=== PATIENT | male | born 1990 | race Caucasian/White ===

== ENCOUNTER 2020-03-30 09:28 | Emergency (ER) | payer MEDICAID, SELFPAY ==
[2020-03-30 09:36] VITALS: BP 151/81; PULSE 96; RESP 18; TEMP 36.8; O2SAT 100
--- NOTE | 2020-03-30 09:50 | ED.EYEPROB ---
HPI - Eye Problem General Chief complaint: Eye Problems Stated complaint: left eye swollen/discharge Time Seen by Provider: 03/30/20 09:42 Source: patient and RN notes reviewed Mode of arrival: ambulatory Limitations: no limitations History of Present Illness HPI Narrative: Patient presents today complaining of redness, swelling, and purulent drainage from the left upper eyelid x3 days. History of several styes in the past, and states symptoms are similar. Denies vision changes or photophobia. He has been applying hot compresses without relief. Reports the drainage is most prominent in the mornings. Does not wear contacts. chief complaint: eye pain Related Data Allergies Allergy/AdvReac Type Severity Reaction Status Date / Time No Known Allergies Allergy Verified 03/30/20 09:43 Review of Systems Review of Systems: Narrative: CONSTITUTIONAL: Denies body aches, fever, chills, or sweats. EYES: Denies visual changes. Swelling to left upper eyelid ENT: Denies rhinorrhea, congestion, sore throat, or otalgia. CARDIOVASCULAR: Denies chest pain, palpitations, or edema. RESPIRATORY: Denies cough or dyspnea. GASTROINTESTINAL: Denies abdominal pain, nausea, vomiting, or diarrhea. GENITOURINARY: Denies dysuria or hematuria. SKIN: Denies rash, itching, or wounds. MUSCULOSKELETAL: Denies back pain, joint pain, or myalgia. NEUROLOGIC: Denies headache, numbness, tingling, or weakness. PSYCH: Denies depression or anxiety. PMFSH Social History Social History Gender identity (if verbalized by the patient): Male Comments At time of signature, I have reviewed and agree with nursing past medical, surgical, social and family history unless otherwise noted. Please see nursing chart for further information. There is no relevant family history pertinent to the presenting complaint Exam Narrative: Exam Narrative: GENERAL: Well-appearing, well-nourished, and in no acute distress. HEAD: Normocephalic, atraumatic. EYES: EOMI. PERRL. + Small pustule to the inner aspect of the left upper medial eyelid. No active drainage. Conjunctiva is mildly injected. Right eye normal. Eyelashes normal. ENT: Mucous membranes pink and moist. Nares clear. No rhinorrhea. NECK: Normal AROM. CHEST: No respiratory distress. EXTREMITIES: Normal range of motion. No edema. SKIN: Warm, dry, no rash. Capillary refill normal. Normal skin turgor. NEURO: No focal deficits. Alert and oriented x3. Gait steady. PSYCH: Normal affect. No signs of depression or anxiety. Course Vital Signs Vital signs: Vital Signs Temperature 98.3 F 03/30/20 09:36 Pulse Rate 96 03/30/20 09:36 Respiratory Rate 18 03/30/20 09:36 Blood Pressure 151/81 H 03/30/20 09:36 Pulse Oximetry 100 03/30/20 09:36 Temperature 98.3 F 03/30/20 09:36 Pulse Rate 96 03/30/20 09:36 Respiratory Rate 18 03/30/20 09:36 Blood Pressure 151/81 H 03/30/20 09:36 Pulse Oximetry 100 03/30/20 09:36 Reviewed. Pt has been instructed to follow up with his PCP regarding his elevated blood pressure today. MDM - Eye Problem Differential Diagnosis Differential diagnosis: Likely conjunctivitis and other (Blepharitis, cellulitis, stye) Critical Care Time Critical Care Time Critical Care Time: No Discharge Plan Discharge Clinical Impression: Hordeolum internum of left upper eyelid Patient Disposition: Home, Self-Care Condition: Stable Instructions: Vaishali (ED) Additional Instructions: Please use eyedrops as directed. Continue warm compresses. Follow-up with an eye doctor in 3 days if symptoms are not improving. Tylenol or ibuprofen for pain. Your blood pressure was elevated above 120/80 today at Urgent Care. This puts you above the threshold for follow up. Please schedule a followup visit with your personal physician as soon as possible, for further evaluation and treatment. Even blood pressure exceeding 120/80 may indicate pre-hypertension. Elizabeth
== END 2020-03-30 09:58 | disposition home or self-care (01) ==
PROVIDERS: Emergency Provider Nurse Practitioner
DX: H00.024 Hordeolum internum left upper eyelid (principal)
CPT/HCPCS: 99213; G0463

== ENCOUNTER 2021-02-12 18:03 | Emergency (ER) | payer MEDICAID, SELFPAY ==
[2021-02-12 18:12] VITALS: BP 151/77; PULSE 97; RESP 20; TEMP 36.8; O2SAT 99
--- NOTE | 2021-02-12 18:36 | ED.EYEPROB ---
HPI - Eye Problem General Chief complaint: Eye Problems Stated complaint: Stye on right eye Time Seen by Provider: 02/12/21 18:27 Source: patient, RN notes reviewed and old records reviewed Mode of arrival: ambulatory Limitations: no limitations History of Present Illness HPI Narrative: Patient presents today complaining of a stye to the right lower eyelid times this morning. States it has tripled in size in the last 10 hours. Denies drainage, but reports swelling of the eyelid. States he has tried a hot compress, but no other interventions. States that he gets styes once per year and needs antibiotic eyedrops so he wanted to come in early and get started on them instead of trying [id number] treatment at home first. Related Data Allergies Allergy/AdvReac Type Severity Reaction Status Date / Time No Known Allergies Allergy Verified 03/30/20 09:43 Review of Systems Review of Systems: Narrative: CONSTITUTIONAL: Denies body aches, fever, chills, or sweats. EYES: Denies visual changes, redness, or discharge. + Stye to right lower eyelid ENT: Denies rhinorrhea, congestion, sore throat, or otalgia. CARDIOVASCULAR: Denies chest pain, palpitations, or edema. RESPIRATORY: Denies cough or dyspnea. GASTROINTESTINAL: Denies abdominal pain, nausea, vomiting, or diarrhea. GENITOURINARY: Denies dysuria or hematuria. SKIN: Denies rash, itching, or wounds. MUSCULOSKELETAL: Denies back pain, joint pain, or myalgia. NEUROLOGIC: Denies headache, numbness, tingling, or weakness. PSYCH: Denies depression or anxiety. PMFSH Social History Social History Gender identity (if verbalized by the patient): Male Comments At time of signature, I have reviewed and agree with nursing past medical, surgical, social and family history unless otherwise noted. Please see nursing chart for further information. There is no relevant family history pertinent to the presenting complaint Exam Narrative: Exam Narrative: GENERAL: Well-appearing, well-nourished, and in no acute distress. HEAD: Normocephalic, atraumatic. EYES: EOMI. PERRL. Conjunctivae normal. 1 mm pustule to the eyelash margin laterally of the right lower eyelid with scant surrounding edema. ENT: Mucous membranes pink and moist. NECK: Normal AROM. CHEST: No respiratory distress. EXTREMITIES: Normal range of motion. No edema. SKIN: Warm, dry, no rash. Capillary refill normal. Normal skin turgor. NEURO: No focal deficits. Alert and oriented x3. Gait steady. PSYCH: Normal affect. No signs of depression or anxiety. Course Vital Signs Vital signs: Vital Signs Temperature 98.3 F 02/12/21 18:12 Pulse Rate 97 02/12/21 18:12 Respiratory Rate 20 02/12/21 18:12 Blood Pressure 151/77 H 02/12/21 18:12 Pulse Oximetry 99 02/12/21 18:12 Temperature 98.3 F 02/12/21 18:12 Pulse Rate 97 02/12/21 18:12 Respiratory Rate 20 02/12/21 18:12 Blood Pressure 151/77 H 02/12/21 18:12 Pulse Oximetry 99 02/12/21 18:12 Reviewed. Pt has been instructed to follow up with his PCP regarding his elevated blood pressure today. MDM - Eye Problem Differential Diagnosis Differential diagnosis: Likely corneal abrasion, conjunctivitis, periorbital cellulitis and other (Vaishali) Critical Care Time Critical Care Time Critical Care Time: No Discharge Plan Discharge Clinical Impression: External hordeolum Qualifiers: Laterality: right Eyelid: lower Qualified Code(s): H00.012 - Hordeolum externum right lower eyelid Patient Disposition: Home, Self-Care Condition: Stable Instructions: Vaishali (ED) Additional Instructions: Please use the eyedrops as directed. Clean eyelashes with diluted baby shampoo to help wash away the bacteria. Your blood pressure was elevated above 120/80 today at Urgent Care. This puts you above the threshold for follow up. Please schedule a followup visit with your personal physician as soon as possible, for further evaluation and treatment. Ev
== END 2021-02-12 18:40 | disposition home or self-care (01) ==
PROVIDERS: Emergency Provider Nurse Practitioner
DX: H00.012 Hordeolum externum right lower eyelid (principal)
CPT/HCPCS: 99213; G0463

== ENCOUNTER 2021-10-14 17:13 | Emergency (ER) | payer MEDICAID, SELFPAY ==
[2021-10-14 17:22] VITALS: BP 144/89; PULSE 102; RESP 16; TEMP 36.9; O2SAT 99
--- NOTE | 2021-10-14 17:31 | ED.URI ---
HPI - URI/Sore Throat General Chief Complaint: Upper Respiratory Infection Stated Complaint: uri Time Seen by Provider: 10/14/21 17:30 Source: patient, RN notes reviewed and old records reviewed Mode of arrival: ambulatory Limitations: no limitations History of Present Illness HPI Narrative: 31 year old male who presents to [facility] care with complaints of one week duration of cough, nasal congestion which is yellowish green in color, with intermittent temperatures up to 100.2F with last known temperature last pm. Patient reports that he has been taking Dayquil for his symptoms. Patient reports that he had a negative COVID PCR on Monday at [facility]. Patient denies any chills or sweats, denies any body aches, no shortness of breath or any chest pains, has had COVID and flu vaccinations. Related Data Allergies Allergy/AdvReac Type Severity Reaction Status Date / Time No Known Allergies Allergy Verified 03/30/20 09:43 Review of Systems Review of Systems: CONSTITUTIONAL: Intermittent fever, no chills, or sweats. EYES: Denies visual changes, redness, or discharge. ENT: Positive for rhinorrhea, congestion,no sore throat, or otalgia. CARDIOVASCULAR: Denies chest pain, palpitations, or edema. RESPIRATORY: positive for cough no dyspnea. GASTROINTESTINAL: Denies abdominal pain, nausea, vomiting, or diarrhea. GENITOURINARY: Denies dysuria or hematuria. SKIN: Denies rash or itching. MUSCULOSKELETAL: Denies back pain, joint pain,denies any body aches NEUROLOGIC: Denies headache, numbness, or weakness. PSYCHIATRIC: Denies anxiety or depression. All systems reviewed & are unremarkable except as noted in HPI and below PMFSH Past Medical History Medical History No significant past medical history Surgical History Surgical History No pertinent past surgical history Social History Social History (Updated 10/15/21 @ 00:24 by Santa Weber NP) Smoking status: Never smoker Alcohol intake: current Alcohol use details: social Substance use type: does not use Gender identity (if verbalized by the patient): Male Comments At time of signature, agree with nursing past medical, surgical, social and family history. There is no relevant family history pertinent to the presenting complaint Exam Narrative: GENERAL: Well-appearing, well-nourished, and in no acute distress. HEAD: Normocephalic, atraumatic. EYES: PERRLA and EOMI. ENT: Nares red with clear rhinorrhea no epistaxis. Mucous membranes moist.TM's normal with good light reflex, throat red with no tonsil enlargement or any lesions or exudates NECK: Supple.no lymphadenopathy CHEST: Clear to auscultation. No respiratory distress.SAO2 99% on room air HEART: Regular rate and rhythm. No murmur heard. Normal peripheral pulses. ABDOMEN: Soft, nontender, nondistended, normal active bowel sounds. EXTREMITIES: Normal range of motion. No edema. SKIN: Warm, dry, no rash. NEURO: No focal deficits. Alert and oriented x3. Course Course Level of Care: Express Care Visit Vital Signs Vital signs: Vital Signs Temperature 36.9 C 10/14/21 17:22 Pulse Rate 102 H 10/14/21 17:22 Respiratory Rate 16 10/14/21 17:22 Blood Pressure 144/89 H 10/14/21 17:22 Pulse Oximetry 99 10/14/21 17:22 Temperature 36.9 C 10/14/21 17:22 Pulse Rate 102 H 10/14/21 17:22 Respiratory Rate 16 10/14/21 17:22 Blood Pressure 144/89 H 10/14/21 17:22 Pulse Oximetry 99 10/14/21 17:22 MDM - URI/Sore Throat Differential Diagnosis Differential diagnosis: Likely upper respiratory infection, sinusitis, viral infection and pharyngitis Medical Records Attestation: I reviewed the patient's medical records. Critical Care Time Critical Care Time Critical Care Time: No Discharge Plan Discharge Clinical Impression: URI with cough and congestion Patient Disposition: Home, Self-
== END 2021-10-14 17:59 | disposition home or self-care (01) ==
PROVIDERS: Emergency Provider Registered Nurse
DX: J06.9 Acute upper respiratory infection, unspecified (principal)
CPT/HCPCS: 99213; G0463

== ENCOUNTER 2021-11-27 14:18 | Emergency (ER) | payer MEDICAID, SELFPAY ==
[2021-11-27 14:31] VITALS: BP 140/81; PULSE 108; RESP 16; TEMP 37.1; O2SAT 98
--- NOTE | 2021-11-27 14:42 | ED.URI ---
HPI - URI/Sore Throat General Chief Complaint: Upper Respiratory Infection Stated Complaint: Sore Throat,Cough Time Seen by Provider: 11/27/21 14:42 Source: patient Mode of arrival: ambulatory Limitations: no limitations History of Present Illness HPI Narrative: 31-year-old male presents with complaint of nasal congestion, sinus pressure, postnasal drainage for 10 days. Reports coughing up green phlegm for 5 days. Denies shortness of breath or chest pain. Is taking NyQuil and Zyrtec daily. Afebrile. All systems reviewed and negative except as noted above. Related Data Allergies Allergy/AdvReac Type Severity Reaction Status Date / Time No Known Allergies Allergy Verified 11/27/21 14:49 Review of Systems Review of Systems: CONSTITUTIONAL: Denies fever, chills, or sweats. EYES: Denies visual changes, redness, or discharge. ENT: Reports rhinorrhea, congestion, sore throat. Denies otalgia. CARDIOVASCULAR: Denies chest pain, palpitations, or edema. RESPIRATORY: Reports cough. Denies dyspnea. GASTROINTESTINAL: Denies abdominal pain, nausea, vomiting, or diarrhea. GENITOURINARY: Denies dysuria or hematuria. SKIN: Denies rash or itching. MUSCULOSKELETAL: Denies back pain, joint pain, or myalgia. NEUROLOGIC: Denies headache, numbness, or weakness. PSYCHIATRIC: Denies anxiety or depression. All other systems reviewed are negative, except as documented in HPI. PMFSH Past Medical History Medical History No significant past medical history Surgical History Surgical History No pertinent past surgical history Social History Social History (Updated 10/15/21 @ 00:24 by Santa Weber NP) Smoking status: Never smoker Alcohol intake: current Alcohol use details: social Substance use type: does not use Gender identity (if verbalized by the patient): Male Comments At time of signature, agree with nursing past medical, surgical, social and family history. There is no relevant family history pertinent to the presenting complaint. Exam Narrative: GENERAL: This is a well-nourished, well-developed patient, in no apparent distress. HEAD: normocephalic, atraumatic. EYES: PERRL. Sclera clear/white. Vision is grossly intact. EARS: External ears normal, auditory canals clear and without drainage, TMs normal without perforation. Hearing grossly intact. NOSE: External nose normal with clear nasal drainage, erythema to naris. Maxillary sinus tenderness bilaterally. THROAT: Mucous membranes moist, posterior pharynx clear postnasal drainage. NECK: Neck supple, non-tender without lymphadenopathy, masses or thyromegaly. CARDIOVASCULAR: Regular rate and rhythm without murmurs, gallops, or rubs. RESPIRATORY: Clear to auscultation. Breath sounds equal bilaterally. No wheezes, rales, or rhonchi. SKIN: warm, Dry, intact with no suspicious lesions or rash, good texture and turgor. NEURO: awake, alert, and oriented to person, place and time. There were no obvious focal neurologic abnormalities. EXTREMITIES: Normal range of motion to all extremities. Course Course Level of Care: Express Care Visit Vital Signs Vital signs: Vital Signs Temperature 37.1 C 11/27/21 14:31 Pulse Rate 108 H 11/27/21 14:31 Respiratory Rate 16 11/27/21 14:31 Blood Pressure 140/81 11/27/21 14:31 Pulse Oximetry 98 11/27/21 14:31 Temperature 37.1 C 11/27/21 14:31 Pulse Rate 108 H 11/27/21 14:31 Respiratory Rate 16 11/27/21 14:31 Blood Pressure 140/81 11/27/21 14:31 Pulse Oximetry 98 11/27/21 14:31 Reviewed MDM - URI/Sore Throat MDM Narrative Medical decision making narrative: Patient is aware of diagnosis, understands and agrees to treatment plan. Anticipatory guidance given. Patient agrees to follow-up as directed and is aware of reasons to seek care at the emergency department. Portions of this record
== END 2021-11-27 15:03 | disposition home or self-care (01) ==
PROVIDERS: Emergency Provider Nurse Practitioner Family
DX: J01.90 Acute sinusitis, unspecified (principal); J04.0 Acute laryngitis; Z20.822 Contact with and (suspected) exposure to COVID-19
CPT/HCPCS: 87081; 87426; 87880; 99213; C9803; G0463

== ENCOUNTER 2022-07-08 14:26 | Emergency (ER) | payer MEDICAID, SELFPAY ==
[2022-07-08 14:55] VITALS: BP 134/72; PULSE 85; RESP 16; TEMP 36.7; O2SAT 98
--- NOTE | 2022-07-08 15:52 | ED.URI ---
HPI - URI/Sore Throat General Chief Complaint: Upper Respiratory Infection Stated Complaint: cough Time Seen by Provider: 07/08/22 15:53 Source: patient, RN notes reviewed and old records reviewed Mode of arrival: ambulatory Limitations: no limitations History of Present Illness HPI Narrative: 31-year-old male presents to the [facility] with complaints of a cough, congestion, postnasal drip for over 2 weeks. Patient reports only taking DayQuil. Related Data Allergies Allergy/AdvReac Type Severity Reaction Status Date / Time No Known Allergies Allergy Verified 07/08/22 15:12 Review of Systems Review of Systems: All systems reviewed & are unremarkable except as noted in HPI and below Constitutional: Constitutional: Reports no additional constitutional complaints, Denies chills and Denies fever(s) Eyes: Eyes: Reports no additional eye complaints ENT: Reports as per HPI Cardiovascular: Cardiovascular: Reports no additional cardiovascular complaints Respiratory: Respiratory: Reports as per HPI, Reports chest congestion and Reports cough Gastrointestinal: Gastrointestinal: Reports no additional gastrointestinal complaints Musculoskeletal: Musculoskeletal: Reports no additional musculoskeletal complaints Integumentary/Breasts: Skin/Breast: Reports system reviewed and no additional complaints, except as docu Neurologic: Reports system reviewed and no additional complaints, except as documented Psychiatric: Psychiatric: Reports no additional psychiatric complaints Allergic/Immunologic: Allergic/Immunologic: Reports no additional allergic/immunologic complaints PMFSH Past Medical History Medical History No significant past medical history Surgical History Surgical History No pertinent past surgical history Social History Social History Smoking status: Never smoker Alcohol intake: current Alcohol use details: social Substance use type: does not use Gender identity (if verbalized by the patient): Male Comments At the time of my signature, I reviewed and agree with the nursing past medical, surgical, social, and family history. There is no relevant family history pertinent to the patient complaint. Exam Const: General: healthy appearing, comfortable, no acute distress, well developed, alert and well nourished Nutritional Appearance: well nourished Orientation/consciousness: patient oriented x3 Limitations: no limitations HENMT: Head: normal to inspection Ears: external ears normal, TM's normal bilaterally and EAC's normal Face/Nose/Sinus: Normal external nose present and Normal nares present Throat: posterior oropharynx normal and uvula midline Eyes: General: appearance normal, both eyes and all related structures Conjunctivae: conjunctivae normal Pupils: Equal, round and reactive pupils present Neck: Neck: normal visual inspection, full ROM, no lymphadenopathy and no meningeal signs Chest: Chest palpation & inspection: normal inspection of the chest Resp: Effort & Inspection: normal respiratory effort and no use of accessory muscles Auscultation: clear to auscultation bilaterally, no crackles, no rales, no rhonchi and no wheezes Cardio: Rate: regular rate Rhythm: regular rhythm Back/Spine/Pelvis: Cervical Spine: cervical ROM normal and No Cervical spine tenderness Thoracic/Lumbar Spine: thoracic and lumbar spine normal to inspection and thoraco-lumbar ROM normal Skin: General skin exam: normal color Rashes: no rashes Wounds: no wounds Neuro: General: patient oriented x3, moves all extremities, no meningeal signs and no focal motor deficits Cranial nerves: Yes Equal, round and reactive pupils present Speech: normal speech Gait exam (Neuro): Normal gait present Extrem: General: normal to inspection, full ROM and capillary refil
== END 2022-07-08 16:15 | disposition home or self-care (01) ==
PROVIDERS: Emergency Provider Nurse Practitioner
DX: J40 Bronchitis, not specified as acute or chronic (principal); J06.9 Acute upper respiratory infection, unspecified; Z86.16 Personal history of COVID-19
CPT/HCPCS: 99213; G0463

== ENCOUNTER 2023-05-20 18:26 | Emergency (ER) | payer MEDICAID, SELFPAY ==
--- NOTE | ~2023-05-20 | XR_ITS ---
EXAMINATION: XR chest 2V Exam Date/Time: 05/20/2023 18:43 CDT HISTORY: productive cough x 3 days past vaper Comparison: None. RESULT: Lines, tubes, and devices: None. Lungs and pleura: Ill-defined patchy bilateral lower lung opacities, more discrete in the left lung. Cardiomediastinal silhouette: Normal. Other: No acute osseous or upper abdominal finding. IMPRESSION: Ill-defined lower lung patchy opacities may represent atelectasis/pneumonia. Vaping associated lung d isease is not excluded. Recommend radiologic follow-up to demonstrate resolution. Consider pulmonary consultation/chest CT if symptoms persist. Reviewed, dictated and finalized at location [facility]. IMPRESSION: Ill-defined lower lung patchy opacities may represent atelectasis/pneumonia. Va ping associated lung disease is not excluded. Recommend radiologic follow-up to demonstrate resolution. Consider pulmonary consultation/chest CT if symptoms p ersist.
[2023-05-20 18:34] VITALS: BP 125/76; PULSE 89; RESP 16; TEMP 36.8; O2SAT 99
--- NOTE | 2023-05-20 18:43 | ED.URI ---
HPI - URI/Sore Throat General Chief Complaint: Upper Respiratory Infection Stated Complaint: Cough Time Seen by Provider: 05/20/23 18:35 Source: patient Mode of arrival: ambulatory Limitations: no limitations History of Present Illness HPI Narrative: Aki is a 32-year-old male patient presenting to the clinic today with complaints of a productive cough, sinus pressure, and congestion x8 days. He denies any known fever or chills. Has bringing up some green olive covered phlegm. History of smoker/vaping. MD elicited complaint: cough, nasal congestion and sinus pain Related Data Home Medications Medication Instructions Recorded Confirmed amitriptyline 10 mg tablet 10 mg PO DAILY 05/20/23 05/20/23 Allergies Allergy/AdvReac Type Severity Reaction Status Date / Time No Known Allergies Allergy Verified 05/20/23 18:32 Review of Systems Review of Systems: Pertinent positives per HPI. Patient denies any fever, chills, rash, visual changes, dizziness, shortness of breath, chest pain, palpitations, nausea, vomiting, diarrhea, constipation, abdominal pain, or any urinary issues. PMFSH Past Medical History Medical History No significant past medical history Surgical History Surgical History No pertinent past surgical history Social History Social History Smoking status: Never smoker Alcohol intake: current Alcohol use details: social Substance use type: does not use Gender identity (if verbalized by the patient): Male Comments At the time of my signature, I reviewed and agree with the nursing past medical, surgical, social, and family history. There is no relevant family history pertinent to the patient complaint. Exam Narrative: General: Well-developed, well nourished, in no apparent distress Head: Normocephalic, atraumatic Eyes: Pupils equally round and reactive to light bilaterally, EOM intact, sclera and conjunctive clear, no discharge, lids normal Ears: TMs intact and clear, ear canals clear, no drainage, grossly hearing normal. Nose: Nares patent, clear nasal discharge, body inflammation, maxillary and frontal sinus tenderness. Mouth: Oral pharynx without lesions or masses, good dentition, MMM. Postnasal drip Neck: Supple, trachea midline, no enlargement of anterior or posterior cervical nodes, no thyroid masses or goiter palpable. Cardio: Regular rate and rhythm, s1 and s2 normal, no murmur appreciated. Resp: Coursing congested with inspiratory wheezing over the right posterior lung rodriguez, no rales or rubs Course Course Emergency Course: Portions of this record may have been created with voice recognition software. Level of Care: Express Care Visit Vital Signs Vital signs: Vital Signs Temperature 36.8 C 05/20/23 18:34 Pulse Rate 89 05/20/23 18:34 Respiratory Rate 16 05/20/23 18:34 Blood Pressure 125/76 05/20/23 18:34 Pulse Oximetry 99 05/20/23 18:34 Oxygen Delivery Room Air 05/20/23 18:34 Temperature 36.8 C 05/20/23 18:34 Pulse Rate 89 05/20/23 18:34 Respiratory Rate 16 05/20/23 18:34 Blood Pressure 125/76 05/20/23 18:34 Pulse Oximetry 99 05/20/23 18:34 Oxygen Delivery Room Air 05/20/23 18:34 Vital signs reviewed MDM - URI/Sore Throat MDM Narrative Medical decision making narrative: At the time of visit patient is resting comfortably on the exam table. Chest x-ray was performed and shows that he has left lung pneumonia. Will place patient on azithromycin, prednisone, albuterol inhaler, and Augmentin. I suspect patient also has bacterial rhinosinusitis. Supportive measures were discussed with the patient he voiced understanding discharge instructions agrees to treatment plan. Differential Diagnosis Differential diagnosis: Likely upper respiratory
== END 2023-05-20 19:08 | disposition home or self-care (01) ==
PROVIDERS: Emergency Provider Nurse Practitioner Family
DX: J01.90 Acute sinusitis, unspecified (principal); J18.9 Pneumonia, unspecified organism
CPT/HCPCS: 71046; 99213; G0463

== ENCOUNTER 2023-08-08 19:00 | Emergency (ER) | payer MEDICAID, SELFPAY ==
[2023-08-08 19:15] VITALS: BP 144/85; PULSE 98; RESP 14; TEMP 37.2; O2SAT 100
--- NOTE | 2023-08-08 19:53 | ED.URI ---
HPI - URI/Sore Throat General Chief Complaint: Upper Respiratory Infection Stated Complaint: wheezing chest congestion,cough Time Seen by Provider: 08/08/23 19:53 Source: patient Mode of arrival: ambulatory Limitations: no limitations History of Present Illness HPI Narrative: 32-year-old male presents with complaint of nasal congestion, cough, sore throat for the past 9 days. Reports over the past 3 days shortness of breath with exertion, restricted breathing, coughing up green sputum. Taking [id number] Mucinex with no relief of symptoms. Denies smoking history, no history of asthma. No respiratory distress at this time. All systems reviewed and negative except as noted above. Related Data Home Medications Medication Instructions Recorded Confirmed amitriptyline 10 mg tablet 10 mg PO DAILY 05/20/23 08/08/23 dextroamphetamine-amphetamine ER 10 mg PO DAILY 08/08/23 08/08/23 10 mg 24hr capsule,extend release Allergies Allergy/AdvReac Type Severity Reaction Status Date / Time No Known Allergies Allergy Verified 08/08/23 19:12 Review of Systems Review of Systems: CONSTITUTIONAL: Denies fever, chills, or sweats. EYES: Denies visual changes, redness, or discharge. ENT: Reports rhinorrhea, congestion. Denies sore throat, or otalgia. CARDIOVASCULAR: Denies chest pain, palpitations, or edema. RESPIRATORY: reports cough, chest congestion, dyspnea with exertion. GASTROINTESTINAL: Denies abdominal pain, nausea, vomiting, or diarrhea. GENITOURINARY: Denies dysuria or hematuria. SKIN: Denies rash or itching. MUSCULOSKELETAL: Denies back pain, joint pain, or myalgia. NEUROLOGIC: Denies headache, numbness, or weakness. PSYCHIATRIC: Denies anxiety or depression. All other systems reviewed are negative, except as documented in HPI. [facility] Past Medical History Medical History No significant past medical history Surgical History Surgical History No pertinent past surgical history Social History Social History Smoking status: Never smoker Alcohol intake: current Alcohol use details: social Substance use type: does not use Gender identity (if verbalized by the patient): Male Comments At time of signature, agree with nursing past medical, surgical, social and family history. There is no relevant family history pertinent to the presenting complaint. Exam Narrative: GENERAL: This is a well-nourished, well-developed patient, in no apparent distress. HEAD: normocephalic, atraumatic. EYES: PERRL. Sclera clear/white. Vision is grossly intact. EARS: External ears normal, auditory canals clear and without drainage, TMs normal without perforation. Hearing grossly intact. NOSE: External nose normal with Clear nasal drainage, mild congestion, erythema to bilateral nares. THROAT: Mucous membranes moist, Erythema postnasal drainage. NECK: Neck supple, non-tender without lymphadenopathy, masses or thyromegaly. CARDIOVASCULAR: Regular rate and rhythm without murmurs, gallops, or rubs. RESPIRATORY: coarse lung sounds throughout all lung rodriguez. Breath sounds equal bilaterally. No wheezes, rales, or rhonchi. SKIN: warm, Dry, intact with no suspicious lesions or rash, good texture and turgor. NEURO: awake, alert, and oriented to person, place and time. There were no obvious focal neurologic abnormalities. EXTREMITIES: No joint tenderness, effusion, or edema noted. Course Course Level of Care: Express Care Visit Vital Signs Vital signs: Vital Signs Temperature 37.2 C 08/08/23 19:15 Pulse Rate 98 08/08/23 19:15 Respiratory Rate 14 08/08/23 19:15 Blood Pressure 144/85 H 08/08/23 19:15 Pulse Oximetry 100 08/08/23 19:15 Temperature 37.2 C 08/08/23 19:15 Pulse Rate 98 08/08/23 19:15 Respiratory R
== END 2023-08-08 20:10 | disposition home or self-care (01) ==
PROVIDERS: Emergency Provider Nurse Practitioner Family
DX: J06.9 Acute upper respiratory infection, unspecified (principal)
CPT/HCPCS: 99213; G0463